=== PATIENT | female | born 1970 | race Caucasian/White ===

== ENCOUNTER 2021-09-27 14:03 | Outpatient (CLI) | payer OTHER, SELFPAY | END 2021-09-27 14:04 | disposition home or self-care (01) | LOC: NFLDREF 14:03 | PROVIDERS: PCP Family Medicine; Visit Provider Family Medicine | DX: Z01.419 Encounter for gynecological examination (general) (routine) without abnormal findings (principal); E78.5 Hyperlipidemia, unspecified; E66.9 Obesity, unspecified; J45.20 Mild intermittent asthma, uncomplicated; J30.1 Allergic rhinitis due to pollen; Z12.4 Encounter for screening for malignant neoplasm of cervix | CPT/HCPCS: 87624; 88175 ==

== ENCOUNTER 2021-11-03 07:51 | Outpatient (CLI) | payer OTHER, SELFPAY | END 2021-11-03 07:52 | disposition home or self-care (01) | PROVIDERS: PCP Family Medicine; Visit Provider Internal Medicine | DX: Z12.11 Encounter for screening for malignant neoplasm of colon (principal) | CPT/HCPCS: 45378; J2250; J3010 ==

== ENCOUNTER 2022-12-05 07:46 | Outpatient (CLI) | payer OTHER, SELFPAY | END 2022-12-05 07:47 | disposition home or self-care (01) | LOC: NFLDREF 12-10 10:35 | PROVIDERS: PCP Family Medicine; Referring Provider Family Medicine; Visit Provider Family Medicine | DX: E78.5 Hyperlipidemia, unspecified (principal); E66.9 Obesity, unspecified; R73.01 Impaired fasting glucose | CPT/HCPCS: 80053; 80061; 84443 ==

== ENCOUNTER 2023-01-28 14:32 | Outpatient (CLI) | payer OTHER, SELFPAY ==
--- NOTE | 2023-01-28 14:40 | CRLHL7_ITS ---
For Patients: As a result of the Century Cures Act, medical imaging exams and procedure reports are released immediately into your electronic medical record. You may view this report before your referring provider. If you have questions, please contact your health care provider. BILATERAL SCREENING MAMMOGRAM WITH COMPUTER-AIDED DETECTION TECHNIQUE: CC and MLO views were obtained. These mammographic images have been obtained using full-field digital technique. These mammographic images were interpreted with the benefit of computer-aided detection. COMPARISON FILM: 10/09/17. FINDINGS: There are scattered areas of fibroglandular density IMPRESSION: There is no radiographic evidence for malignancy. ASSESSMENT: BI-RADS Category 1: Negative RECOMMENDATION: Routine screening mammogram in 1 year. A lay language report of this examination will be provided to the patient. Ronald Knight M.D. Diagnostic Radiologist [email or web address] NAS/Dictated by: Ronald Knight MD @ 01/29/2023 8:28:00 AM (Electronically Signed)
== END 2023-01-28 14:33 | disposition home or self-care (01) ==
LOC: MAMMO 14:33
PROVIDERS: PCP Family Medicine; Visit Provider Family Medicine
DX: Z12.31 Encounter for screening mammogram for malignant neoplasm of breast (principal)
CPT/HCPCS: 77067